=== PATIENT | male | born 1980 | race Caucasian/White ===

== ENCOUNTER 2016-12-31 05:16 | Emergency (ER) | payer OTHER ==
[2016-12-31] MEDS ORDERED: MORPHINE SULFATE 10 MG/ML INJ IV ONE (05:33)
--- NOTE | 2016-12-31 06:04 | RADIOLOGY REPORT (SQ) ---
EXAM DESCRIPTION: HAND RIGHT 3 VIEWS COMPLETED DATE/TIME: 12/31/2016 5:54 am REASON FOR STUDY: DEFORMITY , fall. COMPARISON: None. EXAM PARAMETERS: NUMBER OF VIEWS: Three views. TECHNIQUE: AP, lateral and oblique radiographic images acquired of the right hand. LIMITATIONS: None. FINDINGS: MINERALIZATION: Normal. BONES: No acute fracture or dislocation. There is a healed fracture at the 4th metacarpal. SOFT TISSUES: No soft tissue swelling. No radiopaque foreign body. IMPRESSION: No radiographic evidence of acute injury. TECHNICAL DOCUMENTATION: JOB ID: [id number] [employer]- All Rights Reserved
--- NOTE | 2016-12-31 06:22 | RADIOLOGY REPORT (SQ) ---
EXAM DESCRIPTION: CT CERVICAL SPINE WITHOUT COMPLETED DATE/TIME: 12/31/2016 6:10 am REASON FOR STUDY: FALL . Prior neck surgery 3 years ago. COMPARISON: None. TECHNIQUE: Axial images acquired through the cervical spine without intravenous contrast. Images re viewed with lung, soft tissue and bone windows. Reconstructed coronal and sagittal MPR images review ed. Images stored on PACS. All CT scanners at this facility use dose modulation, iterative reconstruction, and/or weight based d osing when appropriate to reduce radiation dose to as low as reasonably achievable (ALARA). [facility]: Dose Right [facility]: CareDose [facility]: Dose Right [facility]: Teradose 4D [facility]: [employer] RADIATION DOSE: Up-to-date CT equipment and radiation dose reduction techniques were employed. CTDIv ol: 20.5 mGy. DLP: 457 mGy-cm. mGy. LIMITATIONS: Streak artifact from the intervertebral disc spacer at C6-C7 PE FINDINGS: ALIGNMENT: Anatomic. MINERALIZATION: Normal. VERTEBRAL BODIES: No fractures or dislocation. DISCS: Mild degenerative disc disease at C4-C5 and C5-C6. Intervertebral disc spacer at C6-C7. FACETS, LATERAL MASSES, POSTERIOR ELEMENTS: No fractures. No dislocation. HARDWARE: None in the spine. VISUALIZED RIBS: No fractures. LUNG APICES AND SOFT TISSUES: No acute findings. IMPRESSION: No acute fracture at the cervical spine. TECHNICAL DOCUMENTATION: JOB ID: [id number] Quality ID # [id number]: Final reports with documentation of one or more dose reduction techniques (e.g., Au tomated exposure control, adjustment of the mA and/or kV according to patient size, use of iterative reconstruction technique) 2010 [employer]- All Rights Reserved
--- NOTE | 2016-12-31 06:50 | ER Document Report ---
ED General - General Chief Complaint: Fall Injury Stated Complaint: FALL NECK INJURY/ R HAND INJURY Time Seen by Provider: 12/31/16 06:21 TRAVEL OUTSIDE OF THE [place] IN LAST 30 DAYS: No - HPI Patient complains to provider of: Neck pain and pain right Notes: Patient states fell down multiple stairs on Saturday after a trip and fall patient states he was carrying a large TV when a dog tripped him. Patient states history of fracture of the right hand and fracture of his neck is with hardware in place. Patient states he is concerned as he has neck pain patient points to the right lateral trap area of the base of the neck and to the left anterior neck at the junction of the clavicle and sternum. Patient denies any loss of consciousness. Patient also states that swelling to the dorsum of his right hand. States history of fracture of that phalanx however states is healed and been many years states swelling just acutely arose. Denies fevers chills nausea vomiting diarrhea Past Medical History - Social History Smoking Status: Unknown if Ever Smoked Family History: Reviewed & Not Pertinent Patient has suicidal ideation: No Patient has homicidal ideation: No Renal/ Medical History: Denies: Hx Peritoneal Dialysis Review of Systems - Review of Systems Constitutional: Other - Neck pain hand pain EENT: No symptoms reported Cardiovascular: No symptoms reported Respiratory: No symptoms reported Gastrointestinal: No symptoms reported Genitourinary: No symptoms reported Male Genitourinary: No symptoms reported Musculoskeletal: No symptoms reported Skin: No symptoms reported Hematologic/Lymphatic: No symptoms reported Neurological/Psychological: No symptoms reported Physical Exam - Vital signs Vitals: Temp Pulse Resp BP Pulse Ox 98.3 F 96 20 134/101 H 98 12/31/16 07:06 12/31/16 07:06 12/31/16 07:06 12/31/16 07:06 12/31/16 07:06 Interpretation: Normal - General General appearance: Appears well, Alert - HEENT Head: Normocephalic, Atraumatic Eyes: Normal Pupils: PERRL Neck: Other - Patient with pain to palpation lateral base of the neck the posterior side on the right hand at the lateral trapezius. Patient with pain left anterior almost at the junction of the sternal collateral mastoid muscle. - Respiratory Respiratory status: No respiratory distress Chest status: Nontender Breath sounds: Normal Chest palpation: Normal - Cardiovascular Rhythm: Regular Heart sounds: Normal auscultation Murmur: No - Abdominal Inspection: Normal Distension: No distension Bowel sounds: Normal Tenderness: Nontender Organomegaly: No organomegaly - Back Back: Normal, Nontender - Extremities General upper extremity: Normal inspection, Nontender, Edema - Swelling of the fourth phalanx, Normal color, Normal ROM, Normal temperature General lower extremity: Normal inspection, Nontender, Normal color, Normal ROM , Normal temperature, Normal weight bearing. No: Chaka's sign - Neurological Neuro grossly intact: Yes Cognition: Normal Orientation: AAOx4 Gilby Coma Scale Eye Opening: Spontaneous Gilby Coma Scale Verbal: Oriented Gloria Coma Scale Motor: Obeys Commands Gloria Coma Scale Total: 15 Speech: Normal Motor strength normal: LUE, RUE, LLE, RLE Sensory: Normal - Psychological Associated symptoms: Normal affect, Normal mood - Skin Skin Temperature: Warm Skin Moisture: Dry Skin Color: Normal Course - Re-evaluation Re-evalutation: 12/31/16 14:49 Patient coming in with complaint of neck pain and hand pain. X-ray shows a healing fracture. Examination also swelling unclear if there is any acute fracture underneath the bone callus will place the patient in a splint. No signs of fracture on cervical spine will discharge patient home follow-up with his primary care physician - Vital Signs Vital signs: Temp Pulse Resp BP Pulse Ox 98.3 F 96 20 134/101 H 98 12/31/16 07:06 12/31/16 07:06 12/31/16 07:06 12/31/16 07:06 12/31/16 07:06 Procedures - Immobilization Right 4th digit Immobilizer type: Cock-up Performed by: PCT Post-Proc Neuro Vasc Exam: Normal Alignment checked and good: Yes Discharge - Discharge Clinical Impression: Neck pain, Hand pain, right Condition: Good Disposition: HOME, SELF-CARE Instructions: Neck Injury (Cervical Strain) ([facility]) Additional Instructions: At this time do not see any new fracture we do see a large healing bone cyst of the right hand. Place you in a cockup splint for further protection in case there is underlying hidden fracture [place] scan of your neck is negative.There examination is more consistent with muscle skeletal strain. Please take medication as provided these follow-up with your physicians. Prescriptions: Hydrocodone/Acetaminophen [Hydrocodon-Acetaminophen 5-325] 1 each PO Q6 #14 tablet Forms: Return to Work
[2016-12-31 07:07] VITALS: BP 134/101
== END 2016-12-31 07:15 | disposition home or self-care (01) ==
LOC: ER 05:16
DX: S19.9XXA Unspecified injury of neck, initial encounter (principal); S69.91XA Unspecified injury of right wrist, hand and finger(s), initial encounter; W01.0XXA Fall on same level from slipping, tripping and stumbling without subsequent striking against object, initial encounter
CPT/HCPCS: 99284; 96374; 73130; 72125; L3908; J2270